=== PATIENT | female | born 1990 | race Caucasian/White ===

== ENCOUNTER 2019-03-04 04:23 | Inpatient (IN) ==
[2019-03-04] MEDS ORDERED: *HR* LORazepam 1 MG TABLET PO PRN (04:42)
[2019-03-04] MEDS ORDERED: Haloperidol Lactate 5 MG/ML VIAL IM PRN (04:42)
[2019-03-04] MEDS ORDERED: MOM Conc 10 ML UD.LIQ PO PRN (04:42)
[2019-03-04] MEDS ORDERED: Mag Hydrox/Al Hydrox/Simeth 30 ML UDC PO PRN (04:42)
[2019-03-04] MEDS ORDERED: *HR* LORazepam 2 MG/ML VIAL IM PRN (04:42)
[2019-03-04] MEDS: Acetaminophen 325 MG TABLET PO PRN ×2 (05:45→18:30)
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
[2019-03-04] MEDS: CarBAMazepine XR (12 hr) 100 MG TAB PO SCH (11:35)
[2019-03-04] MEDS: (Brexpiprazole [Rexulti] 0.5 MG) PO SCH (11:36)
[2019-03-04] MEDS: traZODone 50 MG TABLET PO PRN (20:53)
[2019-03-05] MEDS: (Brexpiprazole [Rexulti] 0.5 MG) PO SCH ×3 (03:37→20:57)
--- NOTE | 2019-03-05 09:01 | Psychiatry Progress Note ---
Date of Encounter: 03/05/19 Time of Encounter: 08:10 Subjective Interval history: Patient has tolerated increase Zoloft. She continues to report depression and suicidal ideations with a plan to overdose. She is hopeless. She is worried CPS will take her child. She was seclusive most of the day yesterday. She still reports visual hallucinations of fuzzy black things on the floor as well as auditory hallucinations of whispers that she cannot make out. She slept 7- 3/4 hours last night. She reports poor appetite decreased interest and poor concentration. Review of Systems Psychiatric: Reports: depression, anxiety, suicidal ideation, visual dooley ucinations, anhedonia, hopelessness, mood swings. Denies: homicidal ideation, auditory hallucinations Results - Vital Signs Vital Signs: Temp Pulse Resp BP Pulse Ox 98.0 F 80 16 128/85 99 03/04/19 20:32 03/04/19 20:32 03/04/19 20:32 03/04/19 20:32 03/04/19 20:32 Assessment and Plan (1) Bipolar 2 disorder, major depressive episode Current visit: Yes Status: Acute Plan: Continue hospitalization, Close observation, Suicide Precautions per unit protocol, Encourage participation in unit milieu, Group Therapy, Monitor sleep, Monitor appetite Additional Plan: Zoloft was just increased yesterday. We will monitor how she does with this. Encourage group attendance. Therapist will work on linkage. Consider further increased Zoloft if this does not work or perhaps augmentation with other agent. We are still waiting on family to bring in Rexulti. Risks, benefits, side effects, alternatives discussed w/pt: Yes Patient agree able to treatment: Yes Psychiatry Exam - Constitutional Vitals: Temp Pulse Resp BP Pulse Ox 98.0 F 80 16 128/85 99 03/04/19 20:32 03/04/19 20:32 03/04/19 20:32 03/04/19 20:32 03/04/19 20:32 General appearance: age & developmentally appropriate, disheveled - Musculoskeletal Gait: slow Station: other (In bed) Strength & Tone: mild weakness - Psychiatric Patient Orientation: Yes Person, Yes Time, Yes Place, Yes Circumstance Level of alertness: Alert Behavior: withdrawn Psychomotor activity: Slowed Eye Contact: Minimal Contact Mood Description: Depressed Patient description of mood: Depressed Affect description: dysphoric Speech Volume: Soft/Quiet Speech pattern: slowed Language & Vocabulary: consistent with education Thought Process: Linear, Goal Oriented Thought Content: Yes Suicidal ideation, No Homicidal ideation Perceptual Disturbances: Yes Auditory hallucinations, Yes Visual hallucinations Attention Span Ability: Capable of Focused Attention Memory Description: Grossly Intact Patient Reliability: Reliable Historian Fund of knowledge: Yes abstraction ability, Yes aware of current events Intelligence Estimate: Average Judgment: Limited Insight: Minimal
[2019-03-05] MEDS: CarBAMazepine XR (12 hr) 100 MG TAB PO SCH (10:08)
[2019-03-05] MEDS: Acetaminophen 325 MG TABLET PO PRN (10:09)
[2019-03-05] MEDS: hydrOXYzine pamoate 25 MG CAPSULE PO PRN ×2 (14:27→20:58)
[2019-03-05] MEDS: traZODone 50 MG TABLET PO PRN (20:57)
[2019-03-06] MEDS: CarBAMazepine XR (12 hr) 100 MG TAB PO SCH (09:52)
[2019-03-06] MEDS: (Brexpiprazole [Rexulti] 0.5 MG) PO SCH ×2 (09:54→21:20)
--- NOTE | 2019-03-06 10:12 | Psychiatry Progress Note ---
Date of Encounter: 03/06/19 Time of Encounter: 10:09 Subjective Interval history: Client tearful today. Continues to endorse SI with depressed mood. Reports Zoloft is making her tired. Worried increased dose will make her unable to function/care for her child. Has had multiple med trials with limited success in the past. However, she denies ever being on Effexor before. Discussed this as an option since it is a little more activating/stimulating with the additional norepinephrine component. Client would like to try it. Has already had Zoloft this morning so will not be able to start it until tomorrow. Client also reports she needs more coping skills as she has been "a bad " and "a bad mother" due to her mental health issues. Discussed going to groups tomorrow to learn new coping skills. Client came in over the weekend so she has not had much opportunity to take advantage of group activities yet. Review of Systems Constitutional: Denies: fever, chills, weakness, weight change Eyes: Denies: eye pain, vision change Ears, Nose, Throat: Denies: ear pain, throat pain, dental pain, hearing loss, congestion Cardiovascular: Denies: chest pain, palpitations, dyspnea on exertion Respiratory: Denies: cough, dyspnea, wheezes Gastrointestinal: Denies: abdominal pain, nausea, vomiting, diarrhea, constipation Musculoskeletal: Denies: joint swelling, joint pain Neurological: Denies: headache, weakness, numbness, memory loss Psychiatric: Reports: depression, anxiety, suicidal ideation, visual hallucinations, anhedonia, hopelessness, mood swings. Denies: homicidal ideation, auditory hallucinations Results - Vital Signs Vital Signs: Temp Pulse Resp BP Pulse Ox 97.8 F 89 18 126/89 98 03/06/19 09:00 03/06/19 09:00 03/06/19 09:00 03/06/19 09:00 03/06/19 09:00 Assessment and Plan (1) Bipolar 2 disorder, major depressive episode Current visit: Yes Status: Acute Plan: Continue hospitalization, Close observation, Suicide Precautions per unit protocol, Encourage participation in unit milieu, Group Therapy, Monitor sleep, Monitor appetite Risks, benefits, side effects, alternatives discussed w/pt: Yes Patient agreeable to treatment: Yes Psychiatry Exam - Constitutional Vitals: Temp Pulse Resp BP Pulse Ox 97.8 F 89 18 126/89 98 03/06/19 09:00 03/06/19 09:00 03/06/19 09:00 03/06/19 09:00 03/06/19 09:00 General appearance: disheveled - Musculoskeletal Gait: normal Station: relaxed Strength & Tone: normal for patient - Psychiatric Patient Orientation: Yes Person, Yes Time, Yes Place Level of alertness: Alert Behavior: calm, cooperative Psychomotor activity: Normal Eye Contact: Maintains Eye Contact Mood Description: Depressed Affect description: tearful Speech Volume: Normal Speech pattern: normal rate, normal rhythm, normal tone, fluent, spontaneous Language & Vocabulary: consistent with education Thought Process: Linear, Goal Oriented Thought Content: Yes Suicidal ideation, No Homicidal ideation, No Overt delusions Perceptual Disturbances: No Auditory hallucinations, No Visual hallucinations Attention Span Ability: Capable of Focused Attention Memory Description: Grossly Intact Patient Reliability: Reliable Historian Fund of knowledge: Yes abstraction ability, Yes aware of current events Intelligence Estimate: Average Judgment: Fair Insight: Partial
[2019-03-06] MEDS: hydrOXYzine pamoate 25 MG CAPSULE PO PRN ×2 (13:27→22:34)
[2019-03-06] MEDS: traZODone 50 MG TABLET PO PRN (21:20)
[2019-03-07] MEDS ORDERED: Venlafaxine XR (24 HR) 37.5 MG CAP.ER.24H PO SCH (09:00)
[2019-03-07] MEDS: CarBAMazepine XR (12 hr) 100 MG TAB PO SCH (09:34)
[2019-03-07] MEDS: (Brexpiprazole [Rexulti] 0.5 MG) PO SCH ×2 (09:46→21:27)
--- NOTE | 2019-03-07 11:06 | Psychiatry Progress Note ---
Date of Encounter: 03/07/19 Time of Encounter: 11:02 Subjective Interval history: Client states she is still feeling very anxious and angry over the possibility of CPS involvement with her son. Client states they have already put alarms on the windows so that he cannot get out again. Azael reportedly called CPS and they have no report from the officer yet so it is possible nothing bad will happen. Client states she wants to go home but also states "I know I need to be here." SI still present but less intense. Still not sleeping well. Eager to attend groups today. Claims she needs new coping skills. Tolerating Effexor so will increase dose for tomorrow. Client also requesting a higher dose of Vistaril as she does not feel her anxiety is currently being controlled with available prns. Review of Systems Constitutional: Denies: fever, chills, weakness, weight change Eyes: Denies: eye pain, vision change Ears, Nose, Throat: Denies: ear pain, throat pain, dental pain, hearing loss, congestion Cardiovascular: Denies: chest pain, palpitations, dyspnea on exertion Respiratory: Denies: cough, dyspnea, wheezes Gastrointestinal: Denies: abdominal pain, nausea, vomiting, diarrhea, constipation Musculoskeletal: Denies: joint swelling, joint pain Neurological: Denies: headache, weakness, numbness, memory loss Psychiatric: Reports: depression, anxiety, suicidal ideation, visual hallucinations, anhedonia, hopelessness, mood swings. Denies: homicidal ideation, auditory hallucinations Results - Vital Signs Vital Signs: Temp Pulse Resp BP Pulse Ox 99.0 F 89 14 129/90 98 03/06/19 20:03/06/19 20:03/06/19 20:03/06/19 20:03/06/19 20:33 Assessment and Plan (1) Bipolar 2 disorder, major depressive episode Current visit: Yes Status: Acute Risks, benefits, side effects, alternatives discussed w/pt: Yes Patient agreeable to treatment: Yes Psychiatry Exam - Constitutional Vitals: Temp Pulse Resp BP Pulse Ox 99.0 F 89 14 129/90 98 03/06/19 20:33 03/06/19 20:03/06/19 20:03/06/19 20:03/06/19 20:33 General appearance: age & developmentally appropriate, well-groomed, well- nourished - Musculoskeletal Gait: normal Station: relaxed Strength & Tone: normal for patient - Psychiatric Patient Orientation: Yes Person, Yes Time, Yes Place Level of alertness: Alert Behavior: calm, cooperative Psychomotor activity: Normal Eye Contact: Maintains Eye Contact Mood Description: Depressed, Anxious Affect description: congruent with mood Speech Volume: Normal Speech pattern: normal rate, normal rhythm, normal tone, fluent, spontaneous Language & Vocabulary: consistent with education Thought Process: Linear Thought Content: Yes Suicidal ideation, No Homicidal ideation, No Overt delusions Perceptual Disturbances: No Auditory hallucinations, No Visual hallucinations Attention Span Ability: Capable of Focused Attention Memory Description: Grossly Intact Patient Reliability: Reliable Historian Fund of knowledge: Yes abstraction ability, Yes aware of current events Intelligence Estimate: Average Judgment: Fair Insight: Partial
[2019-03-07] MEDS: hydrOXYzine pamoate 25 MG CAPSULE PO PRN ×2 (14:28→21:18)
[2019-03-07] MEDS: traZODone 50 MG TABLET PO PRN (21:17)
[2019-03-07] MEDS: Acetaminophen 325 MG TABLET PO PRN (21:17)
[2019-03-08] MEDS: CarBAMazepine XR (12 hr) 100 MG TAB PO SCH (08:49)
[2019-03-08] MEDS: Acetaminophen 325 MG TABLET PO PRN (08:49)
[2019-03-08] MEDS: (Brexpiprazole [Rexulti] 0.5 MG) PO SCH (08:49)
[2019-03-08] MEDS ORDERED: Venlafaxine XR (24 HR) 75 MG CAP.ER.24H PO SCH (09:00)
[2019-03-08 09:31] VITALS: BP 134/86
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
== END 2019-03-08 14:25 | disposition home or self-care (01) | DRG 753 ==
LOC: 1ANU 04:23
PROVIDERS: ADMIT Psychiatry & Neurology Psychiatry; ATTEND Psychiatry & Neurology Psychiatry